=== PATIENT | male | born 1975 | race Caucasian/White ===

== ENCOUNTER 2020-01-31 19:34 | Emergency (ER) | payer BC, SELFPAY ==
--- NOTE | ~2020-01-31 | XR_ITS ---
XR finger 5th RT min 2V 01/31/2020 20:55 Indication: Post fishhook removal Procedure: 2 views right fifth finger Comparison: 01/31/2020 Findings: Interval removal of a fishhook from soft tissues of the fifth digit. No fracture or traumat ic malalignment. No residual foreign body. Impression: 1: No significant bone or joint abnormality after foreign body removal. Reviewed, dictated and finalized at location A. Impression: 1: No significant bone or joint abnormality after foreign body removal.
--- NOTE | ~2020-01-31 | XR_ITS ---
XR finger 5th RT min 2V 01/31/2020 20:24 Indication: Right fifth finger trauma. Finger pain. [place] and fifth finger. Procedure: 4 views right fifth finger Comparison: No prior studies for comparison. Findings: There is a fishhook in the soft tissues adjacent to the fifth distal phalanx. No underlying fracture or traumatic malalignment. No significant soft tissue swelling. Impression: 1: [place] in soft tissues adjacent to right fifth distal phalanx. No underlying osseous abnormality . Reviewed, dictated and finalized at location A. Impression: 1: [place] in soft tissues adjacent to right fifth distal phalanx. No underlyi ng osseous abnormality.
[2020-01-31 19:38] VITALS: BP 145/80; PULSE 92; RESP 18; TEMP 36.7; O2SAT 99
--- NOTE | 2020-01-31 20:12 | ED.WOUNDLAC ---
HPI - Wound/Laceration General Chief Complaint: Wound/Laceration Stated Complaint: karen in finger Time Seen by Provider: 01/31/20 20:08 Source: RN notes reviewed History of Present Illness HPI narrative: Patient presents emergency department from home for karen in right fifth digit. Patient states prior to arrival he was fishing with his daughter when she went to cast and karen became lodged in his lateral right fifth digit. Denies any other trauma or injury. States that he is unsure of his last tetanus shot. Denies any numbness tingling or fevers Related Data Home Medications Medication Instructions Recorded Confirmed blood sugar diagnostic #10 each 09/05/19 09/05/19 fluticasone propionate 50 2 spray NASAL DAILY 09/05/19 09/05/19 mcg/actuation nasal spray,suspension ketoconazole 2 % topical cream 1 applic TOPICAL DAILY 09/05/19 09/05/19 lancets #50 each 09/05/19 09/05/19 metformin 500 mg tablet 500 mg PO DAILY 09/05/19 09/05/19 triamcinolone acetonide 0.1 % 1 applic TOPICAL BID 09/05/19 09/05/19 topical cream Allergies Allergy/AdvReac Type Severity Reaction Status Date / Time No Known Allergies Allergy Unverified 12/23/18 07:26 Review of Systems Review of Systems: Narrative: Gen.: Denies fevers or chills Musculoskeletal: See HPI Neuro: Denies numbness, tingling, weakness Skin: Denies rash Endo: Reports diabetes mellitus Except as documented, all other systems reviewed and negative [facility] Past Medical History Medical History (Updated 01/31/20 @ 21:02 by Levy Flores DO) Diabetes mellitus type 2 in nonobese Family history of malignant neoplasm of colon in first degree relative diagnosed when younger than 60 years of age Tonsillectomy planned Surgical History Surgical History (Updated 09/07/19 @ 12:40 by Claudine Mo CMA) History of appendectomy History of repair of pectoralis muscle tear Family History Family History (Updated 09/05/19 @ 12:57 by Filemon Becker APN) Mother Patient's mother is in good health Father Patient's father is in good health Other Family history of malignant neoplasm of colon in first degree relative diagnosed when younger than 60 years of age Social History Social History Smoking status: Never smoker Alcohol intake: current Exam Narrative: Exam Narrative: APPEARANCE: No acute distress, nontoxic, resting in bed Eyes: EOMI HEENT: Normocephalic, atraumatic, RESPIRATORY: No respiratory distress MUSCULOSKELETAl: The right fifth digit has fishing hook lodged in the lateral aspect of finger no active bleeding, full flexion extension of the right fifth PIP DIP and MCP joint, capillary refill less than 3 seconds, neurovascular intact NEURO: Awake and alert. Following commands, speech normal, no focal deficits SKIN:: Warm, dry. Normal Color no rash or lesions Course Vital Signs Vital signs: Vital Signs Temperature 98.0 F 01/31/20 19:38 Pulse Rate 92 01/31/20 19:38 Respiratory Rate 18 01/31/20 19:38 Blood Pressure 145/80 H 01/31/20 19:38 Pulse Oximetry 99 01/31/20 19:38 Temperature 98.0 F 01/31/20 19:38 Pulse Rate 92 01/31/20 19:38 Respiratory Rate 18 01/31/20 19:38 Blood Pressure 145/80 H 01/31/20 19:38 Pulse Oximetry 99 01/31/20 19:38 Procedures Foreign Body Removal Foreign Body #1: Time Out Performed: yes Site: right (Fifth finger) Description of foreign body: fish hook Foreign Body Removal Narrative: Right fifth digit digital block performed with lidocaine 1%. Following this the fishhook was a fall fish lower with her coming out and the liver was trimmed down and the hook was cut with a pair of pliers. The fishhook was then advanced and brought out to the finger. Patient tolerated the procedure well. Following this a finger was soaked in warm soapy water on foam splint was placed. MDM - Wound/Laceration Im
[2020-01-31] MEDS: TETANUS,DIPHTHERIA,AC PERTUSSIS ADULT (0.5 ML) BOOSTRIX IM (20:21)
[2020-01-31] MEDS: LIDOCAINE HCL 1% LOCAL INJ 20 ML VIAL (20:45)
[2020-01-31] MEDS: CEPHALEXIN 500 MG CAPSULE PO (20:50)
== END 2020-01-31 21:17 | disposition home or self-care (01) ==
PROVIDERS: Emergency Provider Emergency Medicine; PCP Internal Medicine
DX: S61.236A Puncture wound without foreign body of right little finger without damage to nail, initial encounter (principal); Z23 Encounter for immunization; E11.9 Type 2 diabetes mellitus without complications; Z79.84 Long term (current) use of oral hypoglycemic drugs; W45.8XXA Other foreign body or object entering through skin, initial encounter
CPT/HCPCS: 29130; 73140; 90471; 90715; 99283; A9270

== ENCOUNTER 2020-07-11 10:39 | Outpatient (CLI) | payer BC, SELFPAY ==
[2020-07-11 11:15] LABS: Hemoglobin A1C 6.5 % (<5.7)
[2020-07-11 11:20] LABS: Anion Gap 5 mmol/L (8-16); Blood Urea Nitrogen 16 mg/dL (9-20); Calcium 9.1 mg/dL (8.4-10.2); Carbon Dioxide 25 mmol/L (22-30); Chloride 103 mmol/L (98-107); Cholesterol 204 mg/dL (0-200); Estimated Glomerular Filt Rate > 60; Glucose 151 mg/dL (75-110); HDL Direct 73 mg/dL; Potassium 4.6 mmol/L (3.4-5.0); Sodium 133 mmol/L (137-145); Triglycerides 126 mg/dL (<150)
[2020-07-11 11:30] LABS: LDL Cholesterol Direct 46 mg/dL
== END 2020-07-11 10:40 | disposition home or self-care (01) ==
LOC: ANHLAB 10:41
PROVIDERS: PCP Internal Medicine; Visit Provider Internal Medicine
DX: E11.9 Type 2 diabetes mellitus without complications (principal); E78.5 Hyperlipidemia, unspecified
CPT/HCPCS: 36415; 80048; 80061; 83036

== ENCOUNTER 2021-01-16 16:48 | Outpatient (CLI) | payer BC, SELFPAY ==
[2021-01-16 17:46] LABS: Hemoglobin A1C 7.2 % (<5.7)
[2021-01-16 18:11] LABS: Alanine Aminotransferase 71 U/L (4-50); Albumin Level 4.2 g/dL (3.5-5.1); Alkaline Phosphatase 61 U/L (38-126); Anion Gap 4 mmol/L (8-16); Aspartate Amino Transferase 36 U/L (17-59); Bilirubin,Total 0.9 mg/dL (0.2-1.3); Blood Urea Nitrogen 16 mg/dL (9-20); Calcium 9.2 mg/dL (8.4-10.2); Carbon Dioxide 29 mmol/L (22-30); Chloride 103 mmol/L (98-107); Cholesterol 185 mg/dL (0-200); Estimated Glomerular Filt Rate > 60; Glucose 108 mg/dL (75-110); HDL Direct 77 mg/dL; Potassium 4.3 mmol/L (3.4-5.0); Sodium 136 mmol/L (137-145); Triglycerides 184 mg/dL (<150)
[2021-01-16 18:22] LABS: LDL Cholesterol Direct 34 mg/dL
== END 2021-01-16 16:49 | disposition home or self-care (01) ==
PROVIDERS: PCP Internal Medicine; Visit Provider Internal Medicine
DX: E11.9 Type 2 diabetes mellitus without complications (principal); E78.00 Pure hypercholesterolemia, unspecified; E78.5 Hyperlipidemia, unspecified
CPT/HCPCS: 36415; 80053; 80061; 83036

== ENCOUNTER 2021-06-30 15:43 | Outpatient (CLI) | payer OTHER, SELFPAY ==
--- NOTE | ~2021-06-30 | US_ITS ---
US abdomen complete EXAMINATION: US Abdomen Complete INDICATION: Right-sided abdominal pain PROCEDURE: Realtime High Resolution abdomen ultrasound. COMPARISON: No prior studies for comparison FINDINGS: Gallbladder within normal limits. No gallstones, pericholecystic fluid, gallbladder wall t hickening or biliary dilatation. Common bile duct measures 4 mm. Liver echotexture is increased, consistent with fatty infiltration. Pancreas within normal limits. Pancreatic tail is obscured by bowel gas. Spleen is unremarkeable. Renal echotexture is within arthur l limits bilaterally without hydronephrosis, contour deforming mass or renal stone. Right kidney sharyn ures 9.6 cm. Left kidney measures 11.2 cm. Visualized aspects of the IVC are within normal limits. Aorta is not well visualized due to bowel gas . Portal vein is patent. No sonographic Jay's sign indicated by the technologist. IMPRESSION: 1: Hepatic steatosis. Reviewed, dictated and finalized at location A. IMPRESSION: 1: Hepatic steatosis.
== END 2021-06-30 15:44 | disposition home or self-care (01) ==
LOC: ANHIMG 15:50
PROVIDERS: PCP Internal Medicine; Visit Provider Nurse Practitioner
DX: R10.11 Right upper quadrant pain (principal); R14.0 Abdominal distension (gaseous); K76.0 Fatty (change of) liver, not elsewhere classified
CPT/HCPCS: 76700

== ENCOUNTER 2021-07-31 15:44 | Outpatient (CLI) | payer OTHER, SELFPAY ==
[2021-07-31 17:25] LABS: Hemoglobin A1C 6.7 % (<5.7)
[2021-07-31 17:42] LABS: Alanine Aminotransferase 61 U/L (4-50); Albumin Level 4.9 g/dL (3.5-5.1); Alkaline Phosphatase 59 U/L (38-126); Anion Gap 9 mmol/L (8-16); Aspartate Amino Transferase 35 U/L (17-59); Blood Urea Nitrogen 26 mg/dL (9-20); Calcium 9.3 mg/dL (8.4-10.2); Carbon Dioxide 25 mmol/L (22-30); Chloride 104 mmol/L (98-107); Estimated Glomerular Filt Rate > 60; Glucose 132 mg/dL (65-110); Potassium 4.6 mmol/L (3.4-5.0); Sodium 138 mmol/L (137-145)
== END 2021-07-31 15:45 | disposition home or self-care (01) ==
PROVIDERS: PCP Internal Medicine; Visit Provider Nurse Practitioner
DX: E11.9 Type 2 diabetes mellitus without complications (principal); Z12.5 Encounter for screening for malignant neoplasm of prostate
CPT/HCPCS: 36415; 80053; 83036; 84153; G0103

== ENCOUNTER 2022-03-13 09:50 | Outpatient (CLI) | payer OTHER, SELFPAY ==
--- NOTE | 2022-03-20 19:31 | WPDHOMESLEEP ---
Sleep Study - Home Unattended Date of Study: 03/13/22 Ordering Provider: Filemon Becker APRN Interpreting Provider: Mi Biggs MD Home Sleep Study Type: Apnea Link Air Height: 1.68 m Weight: 122.47 kg Body Mass Index: 43.5 Neck Circumference (inches): 19.5 [place]: 8 Reason for Sleep Study Poor sleep for over 15 years, difficulty getting to sleep and staying asleep Sleep History Reagan Holden is a 46 year old man with a long history of difficulty falling asleep and staying asleep. He has used different medications to help without success. He wakes up throughout the night. He is excessively sleepy in the daytime. He has tried Risperdal, Seroquel and other medications. He does not awaken from sleep feeling short of breath. He rarely awakens at night with heartburn, belching or coughing. Occasionally snores and occasionally it is loud enough that others complain about it. He occasionally has trouble sleeping with a cold. He does not wake up gasping for breath at night. He does not sweat excessively at night. He rarely notices his heart pounding irregularly at night. He rarely falls asleep during the day, he rarely falls asleep involuntarily but never falls asleep while driving. He does not have loss of muscle tone with strong emotion. He frequently has daytime difficulties due to excessive sleepiness. He does not feel paralyzed on waking or falling asleep. He occasionally has vivid dreamlike scenes upon awakening or falling asleep. He does not feel afraid to go to sleep. He occasionally has nightmares. He occasionally remembers his dreams. He frequently has racing thoughts. He rarely feels sad or depressed. He occasionally has anxiety. He frequently has muscular tension. He occasionally notices parts of his body jerking and he occasionally kicks at night. He frequently has crawling and aching feelings in his legs, occasionally has leg pain during the night. He rarely has morning jaw pain. He does not grind his teeth during sleep. He frequently is bothered by pain during the day, frequently is awakened by pain at night. He frequently wakes up feeling stiff the morning with sore achy muscles. He occasionally wakes up with pain in the neck and spine. He has problems with fatigue, insomnia, erectile dysfunction and alcohol. When he wakes at night he is able to return to sleep within 15-20 minutes. He may rule over and adjust his pillows. He does not mention nocturia. He wakes in the morning at 5:30 a.m.. On weekends, bedtime may be later, anywhere between 11:00 p.m. and 1:00 a.m., waking later, between 7:00 a.m. and 9:00 a.m.. On weekends he is able to sleep longer but also notices that he does not wake up as often at night. He does not generally take naps in the afternoon or evening. He is drowsy in the morning for 1 hour or longer. He feels better in the morning compared to other times of day. He reports a 20 lb weight gain in the last year. He has seasonal allergies in the spring and late summer. Habits: He never smoked tobacco. Caffeine 6 cups of coffee a day. Alcohol 3 times per week, 8-10 Mo Lite beers when he drinks. Heestimates 25 beers a week. . [facility] Past Medical History Medical History (Updated 03/20/22 @ 19:40 by Mi Biggs MD) Diabetes mellitus type 2 in nonobese Family history of malignant neoplasm of colon in first degree relative diagnosed when younger than 60 years of age Tonsillectomy planned Surgical History Surgical History (Updated 03/20/22 @ 19:43 by Mi Biggs MD) History of appendectomy History of repair of pectoralis muscle tear History of tonsillectomy Family History Family History Mother Patient's mother is in good health Father Patient's father is in good health Other Family history of malignant neoplasm of colon in first degree relative diagnosed when younger than 60 years of age Social Histo
[2022-03-20 20:00] VITALS: BMI 43.5
== END 2022-03-14 12:54 | disposition home or self-care (01) ==
LOC: ANHCSM 09:51
PROVIDERS: PCP Internal Medicine; Visit Provider Nurse Practitioner
DX: G47.10 Hypersomnia, unspecified (principal); R53.83 Other fatigue; G47.33 Obstructive sleep apnea (adult) (pediatric)
CPT/HCPCS: 95806

== ENCOUNTER 2022-08-16 07:29 | Outpatient (CLI) | payer OTHER, SELFPAY ==
[2022-08-16 08:07] LABS: Alanine Aminotransferase 58 U/L (6-50); Albumin Level 4.6 g/dL (3.5-5.1); Alkaline Phosphatase 58 U/L (38-126); Anion Gap 8 mmol/L (8-16); Aspartate Amino Transferase 29 U/L (17-59); Bilirubin,Total 1.1 mg/dL (0.2-1.3); Blood Urea Nitrogen 21 mg/dL (9-20); Calcium 8.7 mg/dL (8.4-10.2); Carbon Dioxide 27 mmol/L (22-30); Chloride 102 mmol/L (98-107); Cholesterol 208 mg/dL (0-200); Estimated Glomerular Filt Rate > 60; Glucose 181 mg/dL (65-110); HDL Direct 63 mg/dL; Potassium 4.6 mmol/L (3.4-5.0); Sodium 137 mmol/L (137-145); Triglycerides 196 mg/dL (<150)
[2022-08-16 08:21] LABS: LDL Cholesterol Direct 38 mg/dL
== END 2022-08-16 07:30 | disposition home or self-care (01) ==
LOC: ANHLAB 07:31
PROVIDERS: PCP Internal Medicine; Visit Provider Internal Medicine
DX: E11.9 Type 2 diabetes mellitus without complications (principal); E78.00 Pure hypercholesterolemia, unspecified; E78.5 Hyperlipidemia, unspecified
CPT/HCPCS: 36415; 80053; 80061; 83036

== ENCOUNTER 2022-12-13 06:39 | Outpatient (CLI) | payer OTHER, SELFPAY ==
[2022-12-13 07:17] LABS: Alanine Aminotransferase 50 U/L (6-50); Albumin Level 4.5 g/dL (3.5-5.1); Alkaline Phosphatase 49 U/L (38-126); Anion Gap 3 mmol/L (8-16); Aspartate Amino Transferase 30 U/L (17-59); Blood Urea Nitrogen 17 mg/dL (9-20); Calcium 8.8 mg/dL (8.4-10.2); Carbon Dioxide 28 mmol/L (22-30); Chloride 103 mmol/L (98-107); Cholesterol 176 mg/dL (0-200); Estimated Glomerular Filt Rate > 60; Glucose 104 mg/dL (65-110); HDL Direct 73 mg/dL; Potassium 4.3 mmol/L (3.4-5.0); Sodium 134 mmol/L (137-145); Triglycerides 174 mg/dL (<150)
[2022-12-13 07:28] LABS: LDL Cholesterol Direct 34 mg/dL
== END 2022-12-13 06:40 | disposition home or self-care (01) ==
PROVIDERS: PCP Internal Medicine; Visit Provider Internal Medicine
DX: E11.9 Type 2 diabetes mellitus without complications (principal); E78.00 Pure hypercholesterolemia, unspecified; E78.5 Hyperlipidemia, unspecified
CPT/HCPCS: 36415; 80053; 80061; 83036

== ENCOUNTER 2023-07-01 12:07 | Outpatient (CLI) | payer OTHER, SELFPAY ==
[2023-07-01 14:15] LABS: Hemoglobin A1C 5.6 % (<5.7)
[2023-07-01 14:24] LABS: Alanine Aminotransferase 43 U/L (6-50); Albumin Level 4.7 g/dL (3.5-5.1); Alkaline Phosphatase 54 U/L (38-126); Anion Gap 8 mmol/L (8-16); Aspartate Amino Transferase 27 U/L (17-59); Bilirubin,Total 1.6 mg/dL (0.2-1.3); Blood Urea Nitrogen 23 mg/dL (9-20); Calcium 9.4 mg/dL (8.4-10.2); Carbon Dioxide 26 mmol/L (22-30); Chloride 101 mmol/L (98-107); Cholesterol 191 mg/dL (0-200); Estimated Glomerular Filt Rate > 60; Glucose 99 mg/dL (65-110); HDL Direct 84 mg/dL; LDL Cholesterol Direct 45 mg/dL; Potassium 4.4 mmol/L (3.4-5.0); Sodium 135 mmol/L (137-145); Triglycerides 151 mg/dL (<150)
[2023-07-04 11:09] LABS: Testosterone Total 352 ng/dL (250-1100)
== END 2023-07-01 12:08 | disposition home or self-care (01) ==
LOC: ANHLAB 12:11
PROVIDERS: PCP Nurse Practitioner; Visit Provider Nurse Practitioner
DX: E11.9 Type 2 diabetes mellitus without complications (principal); E78.00 Pure hypercholesterolemia, unspecified; R53.83 Other fatigue
CPT/HCPCS: 36415; 80053; 80061; 83036; 84403

== ENCOUNTER 2023-12-09 17:40 | Outpatient (CLI) | payer OTHER, SELFPAY ==
[2023-12-09 18:05] LABS: Basophils Absolute Auto 0.1 K/mm3 (0.0-0.1); Basophils Percent Auto 0.8 % (0.2-1.2); Eosinophils Absolute Auto 0.2 K/mm3 (0-0.3); Eosinophils Percent Auto 1.9 % (0-4.4); Hematocrit 45.8 % (42.0-52.0); Hemoglobin 15.1 g/dL (14.0-18.0); Immature Granulocyte Absolute 0.02 K/mm3 (0.00-0.031); Immature Granulocyte Percent A 0.2 % (0-0.5); Lymphocytes Absolute Auto 3.54 K/mm3 (0.9-3.2); Mean Corpuscular Hemoglobin 29.7 pg (26-34); Mean Corpuscular Volume 90.2 fl (80-100); Mean Platelet Volume 11.4 fl (7.4-10.4); Monocytes Absolute Auto 0.8 K/mm3 (0.1-0.6); Monocytes Percent Auto 8.6 % (2.6-8.5); Neutrophils Absolute Auto 4.5 K/mm3 (1.3-6.7); Neutrophils Percent Auto 49.5 % (45.5-73.1); Platelet Count Result 223 k/mm3 (150-375); Red Blood Count 5.08 M/mm3 (4.6-6.20); Red Cell Distribution Width 13.3 % (11.5-14.5); White Blood Count 9.1 K/mm3 (4.5-10.0)
[2023-12-09 18:14] LABS: Alanine Aminotransferase 43 U/L (6-50); Albumin Level 4.3 g/dL (3.5-5.1); Alkaline Phosphatase 59 U/L (38-126); Anion Gap 5 mmol/L (8-16); Aspartate Amino Transferase 30 U/L (17-59); Bilirubin,Total 1.2 mg/dL (0.2-1.3); Blood Urea Nitrogen 23 mg/dL (9-20); Calcium 9.4 mg/dL (8.4-10.2); Carbon Dioxide 24 mmol/L (22-30); Chloride 107 mmol/L (98-107); Cholesterol 201 mg/dL (0-200); Estimated Glomerular Filt Rate > 60; Glucose 111 mg/dL (65-110); HDL Direct 82 mg/dL; Potassium 4.2 mmol/L (3.4-5.0); Sodium 136 mmol/L (137-145); Triglycerides 241 mg/dL (<150)
[2023-12-09 18:20] LABS: Creatinine Urine 120.8 mg/dL
[2023-12-09 18:48] LABS: Iron 88 ug/dL (49-181)
[2023-12-09 19:12] LABS: Percent Iron Saturation 26 % (20-50)
[2023-12-09 20:01] LABS: Vitamin D 25 Hydroxy 47.2 ng/mL
[2023-12-09 20:02] LABS: MALB Creatinine Ratio 5.4 mg/g (0-30); Microalbumin Urine Random 6.5 mg/L (0-16.7)
[2023-12-09 21:50] LABS: Folic Acid 7.8 ng/mL (2.76->20)
[2023-12-09 22:10] LABS: LDL Cholesterol Direct 49 mg/dL
== END 2023-12-09 17:41 | disposition home or self-care (01) ==
LOC: ANHLAB 17:43
PROVIDERS: PCP Nurse Practitioner; Visit Provider Nurse Practitioner Family
DX: E11.9 Type 2 diabetes mellitus without complications (principal); E78.00 Pure hypercholesterolemia, unspecified; G47.33 Obstructive sleep apnea (adult) (pediatric); N52.9 Male erectile dysfunction, unspecified; M25.519 Pain in unspecified shoulder; G89.29 Other chronic pain; E55.9 Vitamin D deficiency, unspecified; R53.83 Other fatigue
CPT/HCPCS: 36415; 80053; 80061; 82043; 82306; 82607; 82746; 83540; 83550; 85025

== ENCOUNTER 2023-12-10 15:15 | Outpatient (CLI) | payer OTHER, SELFPAY ==
[2023-12-10 16:06] LABS: Rheumatoid Factor < 12.0 IU/ML (<12)
[2023-12-10 16:18] LABS: CRP < 0.5 mg/dL (<1.0)
[2023-12-10 16:21] LABS: Hemoglobin A1C 6.2 % (<5.7)
[2023-12-10 16:23] LABS: Erythrocyte Sedimentation Rate 1 mm/hr (0-20)
[2023-12-12 05:16] LABS: Anti Cyclic Citrullinated Pept <16 Units (<20)
== END 2023-12-10 15:16 | disposition home or self-care (01) ==
PROVIDERS: PCP Nurse Practitioner Family; Visit Provider Nurse Practitioner Family
DX: E11.9 Type 2 diabetes mellitus without complications (principal); M25.50 Pain in unspecified joint
CPT/HCPCS: 36415; 83036; 85652; 86038; 86140; 86200; 86430

== ENCOUNTER 2024-03-27 12:16 | Outpatient (CLI) | payer OTHER, SELFPAY ==
[2024-03-27 13:21] LABS: Alanine Aminotransferase 49 U/L (6-50); Albumin Level 4.4 g/dL (3.5-5.1); Alkaline Phosphatase 54 U/L (38-126); Anion Gap 5 mmol/L (4-12); Aspartate Amino Transferase 31 U/L (17-59); Bilirubin,Total 1.4 mg/dL (0.2-1.3); Blood Urea Nitrogen 20 mg/dL (9-20); Calcium 9.3 mg/dL (8.4-10.2); Carbon Dioxide 24 mmol/L (22-30); Chloride 108 mmol/L (98-107); Estimated Glomerular Filt Rate > 60; Glucose 156 mg/dL (65-110); Potassium 4.5 mmol/L (3.4-5.0); Sodium 137 mmol/L (137-145)
[2024-03-27 13:44] LABS: Hemoglobin A1C 6.5 % (<5.7)
== END 2024-03-27 12:17 | disposition home or self-care (01) ==
PROVIDERS: PCP Nurse Practitioner Family; Visit Provider Nurse Practitioner Family
DX: E11.9 Type 2 diabetes mellitus without complications (principal)
CPT/HCPCS: 36415; 80053; 83036

== ENCOUNTER 2024-10-02 08:39 | Outpatient (CLI) | payer OTHER, SELFPAY ==
[2024-10-02 09:23] LABS: Basophils Absolute Auto 0.1 K/mm3 (0.0-0.1); Basophils Percent Auto 0.9 % (0.2-1.2); Eosinophils Absolute Auto 0.2 K/mm3 (0-0.3); Hematocrit 47.3 % (42.0-52.0); Hemoglobin 15.9 g/dL (14.0-18.0); Immature Granulocyte Absolute 0.02 K/mm3 (0.00-0.031); Immature Granulocyte Percent A 0.3 % (0-0.5); Lymphocytes Absolute Auto 3.51 K/mm3 (0.9-3.2); Lymphocytes Percent Auto 47.6 % (18.3-44.2); Mean Corpuscular HGB Conc 33.6 g/dl (32-36); Mean Corpuscular Hemoglobin 30.5 pg (26-34); Mean Corpuscular Volume 90.6 fl (80-100); Mean Platelet Volume 11.5 fl (7.4-10.4); Monocytes Absolute Auto 0.7 K/mm3 (0.1-0.6); Monocytes Percent Auto 9.2 % (2.6-8.5); Platelet Count Result 247 k/mm3 (150-375); Red Blood Count 5.22 M/mm3 (4.6-6.20); Red Cell Distribution Width 12.9 % (11.5-14.5); White Blood Count 7.4 K/mm3 (4.5-10.0)
[2024-10-02 09:36] LABS: Alanine Aminotransferase 56 U/L (6-50); Albumin Level 4.4 g/dL (3.5-5.1); Alkaline Phosphatase 58 U/L (38-126); Anion Gap 5 mmol/L (4-12); Aspartate Amino Transferase 33 U/L (17-59); Blood Urea Nitrogen 22 mg/dL (9-20); Carbon Dioxide 27 mmol/L (22-30); Chloride 107 mmol/L (98-107); Cholesterol 183 mg/dL (0-200); Estimated Glomerular Filt Rate > 60; Glucose 127 mg/dL (65-110); HDL Direct 64 mg/dL; Potassium 4.2 mmol/L (3.4-5.0); Sodium 139 mmol/L (137-145); Triglycerides 244 mg/dL (<150)
[2024-10-02 09:54] LABS: LDL Cholesterol Direct < 30 mg/dL
[2024-10-02 10:34] LABS: MALB Creatinine Ratio 5.8 mg/g (0-30); Microalbumin Urine Random 10.1 mg/L (0-16.7)
== END 2024-10-02 08:40 | disposition home or self-care (01) ==
PROVIDERS: PCP Nurse Practitioner Family; Visit Provider Nurse Practitioner Family
DX: E78.00 Pure hypercholesterolemia, unspecified (principal); E11.9 Type 2 diabetes mellitus without complications; G47.33 Obstructive sleep apnea (adult) (pediatric); G47.10 Hypersomnia, unspecified; R53.83 Other fatigue; Z68.41 Body mass index [BMI] 40.0-44.9, adult
CPT/HCPCS: 36415; 80053; 80061; 82043; 83036; 85025

== ENCOUNTER 2025-01-21 02:06 | Day surgery (SDC) | payer OTHER, SELFPAY ==
[2025-01-11 15:05] VITALS: BMI 42.0
--- OUTSIDE RECORDS SUMMARY | 2025-01-21 02:09 | XMS_ITS | Continuity of Care Document ---
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 Name Role Phone Jose Smith Unavailable Unavailable Procedures Procedure Date PT Re-evaluation Therapeutic Exercise Neuromuscular Re-Ed Therapeutic Activities Manual Therapy Therapeutic Exercise Therapeutic Activities Neuromuscular Re-Ed Manual Therapy Therapeutic Exercise Therapeutic Activities Neuromuscular Re-Ed Manual Therapy Therapeutic Exercise Therapeutic Activities Neuromuscular Re-Ed Manual Therapy Electrical Stimulation Therapeutic Exercise Therapeutic Activities Neuromuscular Re-Ed Manual Therapy Electrical Stimulation Therapeutic Exercise Therapeutic Activities Neuromuscular Re-Ed Manual Therapy Therapeutic Exercise Therapeutic Activities Neuromuscular Re-Ed Manual Therapy SEO SPECIALIST Acute Therapeutic Exercise Therapeutic Activities Neuromuscular Re-Ed Manual Therapy Hot or Cold Pack Therapeutic Exercise Therapeutic Activities Neuromuscular Re-Ed Manual Therapy Electrical Stimulation Therapeutic Exercise Neuromuscular Re-Ed Therapeutic Activities Manual Therapy Electrical Stimulation Therapeutic Exercise Therapeutic Activities Manual Therapy Neuromuscular Re-Ed Electrical Stimulation Hot or Cold Pack PT Evaluation Moderate Complexity Therapeutic Exercise Therapeutic Activities Neuromuscular Re-Ed Electrical Stimulation Advance Directives Directive Yes / No Effective Date File Name No Information Encounters Encounter Description Practice Location Reason(s) For Visit Diagnoses Date Provider Providers Copied on Encounter [address], [id number], tel:[phone] [place] No Information 1 9 Muehl Jose. [address] [place] [address], [address], [facility], . tel:[phone] Referring Provider: Rayo Edwards, [address] [address], [place], [address]. tel:[phone], [id number], tel:[phone] [place] No Information 0201 9 Muehl Jose. [address] [place] [address], [address], [facility], . tel:[phone] Referring Provider: Rayo Edwards, [address] [address], [place], [address]. tel:[phone] [address], [place], [place], [id number], tel:[phone] [place] No Information 9 Threlkeld Alpa. . Referring Provider: Rayo Edwards, [address] [address], [place], [address]. tel:[phone] [facility] [address], [id number], tel:[phone] [place] No Information 9 Muehl Jose. [address] [place] [address], [address], [place], [place], [facility], [place]. tel:[phone] Referring Provider: Rayo Edwards [address] [place] [address] [address], [place], [address]. tel:[phone], [id number], tel:[phone] [place] No Information 9 Muehl Jose. [address] [place] [address], [address], [place], [place], [facility], [place]. tel:[phone] Referring Provider: Rayo Edwards [address] [place] [address] [address], [place], [address]. tel:[phone], [id number], tel:[phone] [place] No Information 9 Muehl Jose. [address] [place] [address], [address], [place], [facility], [place]. tel:[phone] Referring Provider: Rayo Edwards [address] [place] [address] [address], [place], [address]. tel:[phone], [id number], tel:[phone] [place] No Information 9 Muehl Jose. [address] [place] [address], [address], [place], [address], [place]. tel:[phone] Referring Provider: Raoy Edwards [address] [place] [address] [address], [place], [address]. tel:[phone], [id number], tel:[phone] [place] No Information 9 Muehl Jose. [address] [place] [address], [address], [place], [facility], . tel:[phone] Referring Provider: Rayo Edwards [facility] [address], [place], [address]. tel:[phone], [id number], tel:[phone] [place] No Information 9 Muehl Jose. [address] [place] [address], [address], [place], [facility], . tel:[phone] Referring Provider: Rayo Edwards [address] [place] [address] [facility], [place], [place], [facility]. tel:[phone], [id number], tel:[phone] [place] No Information 9 Ngal Jose. [address] [place] [address], [address] [place] [address], [facility], . tel:[phone] Referring Provider: Rayo Edwards [address] [place] [address] [address] [facility], [place], [address]. tel:[phone], [id number], tel:[phone] [place] No Information 9 Woodyehl Jose. [address] [place] [address], [address], [facility], . tel:[phone] Referring Provider: Rayo Edwards [facility] [address] [place] [address], [address]. tel:[phone], [id number], tel:[phone] [place] Pain in right kneeStiffness of right knee, not elsewhere classifiedEffu cesia, right kneeMuscle weakness (generalized)U nspecified abnormalities of gait and mobility 9 Muehl Jose. [address] [facility], [address], [place], [address], [place]. tel:[phone] Referring Provider: Rayo Edwards, [address] [facility] [address], [place], [address]. tel:[phone] Family History Family Member Type Diagnosis Age At Onset No Information Payers Payer name Insurance type Covered green party ID Authoriza katiuskatroy(s) [employer] EPO WC SP WC [id number] Social History Type Description Quantity Date Captured Comments Alcohol Use Details Unknown Caffeine Use Details Unknown Tobacco Use Status No Information Smoking Status No Information Non-Smoking Tobacco Use Details : No Details Available : No Details Available Sex Male Chief Complaint And Reason For Visit No Information Reason For Referral Reason For Referral No Information History Of Present Illness Encounter Date Complaint History Of Prese nt Illness No Information Functional Status Date Functional Assessmen t Pain Score 3/10 Instructions Date Instruction Additional Infor mation No Information Assessments Type Assessment Date No Information Patient Care Teams Name Effective Dates (start - stop) Status Members No Information
--- OUTSIDE RECORDS SUMMARY | 2025-01-21 02:09 | XMS_ITS | Clinical Summary ---
Author Organization [facility] Address [facility] [place] [address] Care Team Providers Care Sexual Assault Response Coordinator Name Role Phone Emelia Barker NP Primary Care Provider [phone] Allergies Active Allergy Reactions Criticality Noted Date Comments Dss Throat swelling 10/21/2000 Medications acetaminophen (TYLENOL) 325 MG tablet Take 2 tablets (650 mg total) by mouth every 6 (six) hours as needed for Pain. Active Multiple Vitamin (MULTIVITAMIN ADULT OR) Take 1 tablet by mouth daily. Active diphenhydrAMINE (BENADRYL) 50 MG tablet Take 1 tablet (50 mg total) by mouth nightly as needed for Itching. Active metFORMIN (GLUCOPHAGE) 500 MG tablet Take 1 tablet (500 mg total) by mouth 2 (two) times daily with meals. Active fluticasone propionate (FLONASE) 50 MCG/ACT nasal spray Active Semaglutide (OZEMPIC, 0.25 OR 0.5 MG/DOSE, SC) Active Active Problems Problem Noted Date Diagnosed Date S/P arthroscopy of left shoulder 04/09/2024 Nontraumatic complete tear of left rotator cuff 02/11/2024 Impingement syndrome of left shoulder 02/11/2024 Osteoarthritis of left acromioclavicular joint 0 02/11/2024 Injury of tendon of long hea d of biceps, left, initial encounter 02/11/2024 Rotator cuff arthropathy of left shoulder 2023 Encounters Date Type Department Care Team Description 01/19/2025 8:00 AM CDT Office Visit [facility] Orthopedic & Sports Medicine - [place] [address] [place] [address] Nicolasa Yates MD Follow Up (Left shoulder scope 04/10/24) 01/19/2025 Scan [facility] INFO SRVCS Scanned, Doc Med Group 01/19/2025 Travel 01/07/2025 MyChart Message Enc [facility] Orthopedic & Sports Medicine - [place] [address] [place] [address] Mariaa, [facility] Provider apt reschedule 01/06/2025 Telephone [facility] Medicine - [place] [address] [place] [address] Nicolasa Yates MD Reschedule; Work Comp Injury Management; Returned Call 12/30/2024 MyChart Message Enc [facility]opedic & Sports Medicine - [place] [address] [place] [address] Mariaa, [facility] Provider appointment 12/29/2024 Telephone [facility]opedic & Sports Medicine - [place] [address] [place] [address] Nicolasa Yates MD Information 12/25/2024 Scan HEALTH INFO SRVCS Scanned, Doc Med Group 12/21/2024 Telephone [facility]opedic & Sports Medicine - [place] [address] [place] [address] Nicolasa Yates MD Information; Orders 12/15/2024 MyChart Message Enc [facility]opedic [facility] Medicine - [place] [address] [place] [address] Mariaa, [facility] Provider MRI results 12/15/2024 MyChart Message Enc [facility] Medicine - [place] [address] [place] [address] Mariaa, [facility] Provider MRI results 12/09/2024 1:10 PM PROFESSOR OF PHILOSOPHY - 12/09/2024 11:59 PM PROFESSOR OF PHILOSOPHY Hospital Encounter [facility] [address] [place] [address] Nicolasa Yates MD Discharge Disposition: Home or Self Care (Routine Discharge) 12/09/2024 Telephone [facility] Orthopedic & Sports [facility] [address] [place] [address] Nicolasa Yates MD Appointment Request (MRI results) 12/09/2024 Travel 12/01/2024 11:20 AM PROFESSOR OF PHILOSOPHY Office Visit [facility] Orthopedic & Sports [facility] [address] [place] [address] Nicolasa Yates MD Follow Up (Left shoulder 04/10/24) 12/01/2024 Scan [facility] SRVCS Scanned, Doc Med Group 12/01/2024 Travel 11/30/2024 9:00 AM PROFESSOR OF PHILOSOPHY Office Visit [facility] [address] [place] [address] Nicolasa Yates MD Walters, Cierra J, PT Re-evaluation 11/30/2024 Travel 11/27/2024 9:00 AM PROFESSOR OF PHILOSOPHY Office Visit [facility] [address] [place] [address] Nicolasa Yates MD Walters, Cierra J, PT Post Surgical 11/27/2024 Travel 11/25/2024 9:30 AM PROFESSOR OF PHILOSOPHY Office Visit [facility] [address] [place] [address] Nicolasa Yates MD Lutz, Robert J, BREADMAN Post Surgical 11/25/2024 Travel 11/23/2024 8:45 AM PROFESSOR OF PHILOSOPHY Office Visit [facility] [address] [place] [address] Nicolasa Yates MD Walters, Cierra J, PT Post Surgical 11/23/2024 Travel 11/20/2024 9:30 AM PROFESSOR OF PHILOSOPHY Office Visit [facility] [address] [place] [address] Nicolasa Yates MD Lutz, Robert J, BREADMAN Post Surgical 11/20/2024 Travel 11/18/2024 10:15 AM PROFESSOR OF PHILOSOPHY Office Visit [facility] [address] [place] [address] Nicolasa Yates MD Lueken, Anne H, PT Post Surgical 11/18/2024 Travel 11/16/2024 9:15 AM PROFESSOR OF PHILOSOPHY Office Visit [facility] Physical Therapy [address] [facility] [place] [address] Nicolasa Yates MD Collins, Sabrina R, BREADMAN Post Surgical 11/16/2024 Travel 11/13/2024 Telephone [facility] [address] [place] [address] Levy Morales, BREADMAN Called To Cancel Office Appt. 11/11/2024 8:45 AM PROFESSOR OF PHILOSOPHY Office Visit [facility] Physical Therapy [address] [place] [address] Nicolasa Yates MD Lutz, Robert J, BREADMAN Post Surgical 11/11/2024 Travel 11/09/2024 8:45 AM PROFESSOR OF PHILOSOPHY Office Visit [facility] Therapy [address] [place] [address] Nicolasa Yates MD Walters, Cierra J, PT Post Surgical 11/09/2024 Travel 11/06/2024 8:45 AM PROFESSOR OF PHILOSOPHY Office Visit [facility] Physical Therapy [address] [place] [address] Nicolasa Yates MD Lutz, Robert J, BREADMAN Post Surgical 11/06/2024 Travel 11/02/2024 8:45 AM PROFESSOR OF PHILOSOPHY Office Visit [facility] [address] [place] [address] Nicolasa Yates MD Walters, Cierra J, PT Post Surgical 11/02/2024 Travel 10/30/2024 Telephone [facility] [address] [place] [address] Marychuy Bradley, PT Called To Cancel Office Appt. 10/29/2024 11:15 AM PROFESSOR OF PHILOSOPHY Office Visit [facility] Physical Therapy [address] [place] [address] Nicolasa Yates MD Walters, Cierra J, PT Post Surgical 10/29/2024 Travel from Last 3 Months Family History Medical History Relation Comments Cancer Mother Relation Status Comments Father Alive Mother Social History Tobacco Use Types Packs/Day Years Used Date Smoking Tobacco: Never Passive Smoke Exposure: Never Smokeless Tobacco: Never Tobacco Cessation:Counseling Given: No Alcohol Use Standard Drinks/Week Comments Yes 20 (1 standard drink = 0.6 oz pu re alcohol) PHQ-2 Answer Date Recorded Patient Health Questionnaire-2 Score 2 12/01/2024 Sex and Gender Information Value Date Recorded Sex Assigned at Male 12/09/2024 1:07 PM PROFESSOR OF PHILOSOPHY Legal Sex Male 11:12 PM CDT Gender Identity Not on file Sexual Orientation Not on file Last Filed Vital Signs Vital Sign Reading Time Taken Comments Blood Pressure 150/88 01/19/2025 8:29 AM CDT Pulse 71 01/19/2025 8:29 AM CDT Temperature 36.7 C (98.1 F) 01/19/2025 8:07 AM CDT Respiratory Rate 18 04/10/2024 12:50 PM CDT Oxygen Saturation 98% 07/16/2024 9:34 AM CDT Inhaled Oxygen Concentration - - Weight 116 kg (255 lb 12.8 oz) 01/19/2025 8:07 A M CDT Height 170.2 cm (5' 7 ) 01/19/2025 8:07 AM CDT Body Mass Index 40.06 01/19/2025 8:07 AM CDT Plan of Treatment Health Maintenance Due Date Last Done Comments Colorectal Cancer Screening Colonoscopy (10 Years) 1974 Annual Physical 1977 Hepatitis C 1992 Hepatitis B Vaccines (1 of 3 - 19+ 3-dose series) 1993 COVID-19 Vaccine (2 - 2023-2 5 season) 2024 12/23/2020 Zoster Vaccines (1 of 2) 2024 DTaP, Tdap and Td Vaccines ( 2 - Td or Tdap) 01/30/2030 01/31/2020 PHQ-2 (Physician [place]) Completed 12/01/2024 Meningococcal B Vaccine Aged Out No l onger eligible based on patient's age to complete this topic Meningococcal Vaccine Aged Out No shadi conchita eligible based on patient's age to complete this topic Pneumococcal Vaccine: Pediat rics (0 to 5 Years) and At-Risk Patients (6 to 64 Years) Aged Out No longer eligi ble based on patient's age to complete this topic RSV Immunizations Under 20 Months Aged Out No longer eligible based on patient's age to complete this topic Medical Devices Implanted Type Area Towerman Device Identifier Shelf Expiration Date Model / Serial / Lot Implant Ar[employer]rex [place] Bio-Corkscrew 4.5mm - [id number] Implanted:Qty : 1 on 04/10/2024 by Nicolasa Yates MD at [facility] [place] Left: Shoulder [employer] [id number] 04/19/2027 [id number] F-45 / / [id number] Implant [place] Arthrex Bio Swivelock 4.75mm - [id number] Implanted:Qty : 2 on 04/10/2024 by Nicolasa Yates MD at [facility] [place] Left: Shoulder [employer] [id number] 11/20/2027 [id number] C / / [id number] [place] Suture [employer]rex Bio Swivelock 5.5mm - [id number] Implanted:Qty : 1 on 04/10/2024 by Nicolasa Yates MD at [facility] [place] Left: Shoulder [employer] [id number] 12/19/2027 [id number] C / / [id number] Procedures Procedure Name Priority Date/Time Associated Diagnosis Comments MRI SHOULDER LT WO CON Routine 12/09/2024 1:45 PM PROFESSOR OF PHILOSOPHY S/P arthroscopy of left shoulder OXR LT SHOULDER 3V Routine 12/01/2024 11 :47 AM PROFESSOR OF PHILOSOPHY S/P arthroscopy of left shoulder from Last 3 Months Results * MRI SHOULDER LT WO CON (12/09/2024 1:45 PM PROFESSOR OF PHILOSOPHY) Anatomical Region Laterality Modality Shoulder Magnetic Resonan ce 12/15/2024 3:19 PM PROFESSOR OF PHILOSOPHY Impressions 12/15/2024 3:36 PM PROFESSOR OF PHILOSOPHY IMPRESSION: 1) Rotator cuff repair appears intact. No evidence of recurrent rotator cuff tear. 2. Intra-articular proximal long head of biceps tendon is not visualized in its expected location suggesting that it has been torn and retracted. Ordered By: NICOLASA YATES Interpreted By: Janes Mcmahon MD, 12/15/2024 3:19 PM Narrative 12/15/2024 3:36 PM PROFESSOR OF PHILOSOPHY [address] [address] Examination: MRI SHOULDER LT WO CON Exam time: 12/09/2024 1:22 PM Clinical history: History of left rotator cuff repair, long head of biceps tendon tenotomy and resection of the distal clavicle. Recurrent shoulder pain Comparison: 12/26/2023 Technique: Coronal fat-suppressed T2 and fat-suppressed proton density images left shoulder obtained along with sagittal T1 and fat-suppressed T2-weighted images. Axial fat-suppressed proton density images. No intravenous contrast. Findings: The images demonstrate multifocal metal susceptibility artifacts in the humeral head consistent with anchor sutures related to previous surgical repair. Marrow signal in the proximal humerus is otherwise unremarkable. No significant glenohumeral joint effusion. There is no definite evidence of acute labral tear nor para labral cyst. The intra-articular proximal long head of biceps tendon is not visualized in its expected location suggesting that it may be torn and retracted. There is been surgical repair of large rotator cuff tear. The rotator cuff appears intact post surgery. There is no evidence of recurrent rotator cuff tear. Small amount of fluid in subacromial/subdeltoid bursa. There is been previous resection of the distal clavicle. Procedure Note Janes Mcmahon MD - 12/15/2024 [address] [place] [address] Examination: MRI SHOULDER LT WO CON Exam time: 12/09/2024 1:22 PM Clinical history: History of left rotator cuff repair, long head of bicepstendon tenotomy and resection of the distal clavicle. Recurrent shoulderpain Comparison: 12/26/2023 Technique: Coronal fat-suppressed T2 and fat-suppressed proton densityimages left shoulder obtained along with sagittal T1 and [id number] images. Axial fat-suppressed proton density images. Nointravenous contrast. Findings: The images demonstrate multifocal metal susceptibility artifactsin the humeral head consistent with anchor sutures related to previoussurgical repair. Marrow signal in the proximal humerus is otherwiseunremarkable. No significant glenohumeral joint effusion. There is no definite evidence of acute labral tear nor para labral cyst.The intra-articular proximal long head of biceps tendon is not visualizedin its expected location suggesting that it may be torn and retracted. There is been surgical repair of large rotator cuff tear. The rotator cuffappears intact post surgery. There is no evidence of recurrent rotatorcuff tear. Small amount of fluid in subacromial/subdeltoid bursa. There isbeen previous resection of the distal clavicle. IMPRESSION: 1) Rotator cuff repair appears intact. No evidence of recurrent rotatorcuff tear. 2. Intra-articular proximal long head of biceps tendon is not visualizedin its expected location suggesting that it has been torn and retracted. Ordered By: NICOLASA YATES Interpreted By: Janes Mcmahon MD, 12/15/2024 3:19 PM us Nicolasa Yates MD MRI Final Result * OXR LT SHOULDER 3V (12/01/2024 11:47 AM PROFESSOR OF PHILOSOPHY) Anatomical Region Laterality Modality Radiographic Taylor ging Narrative 12/01/2024 11:52 AM PROFESSOR OF PHILOSOPHY PROCEDURE: OXR LT SHOULDER 3V VIEWS: 3 DATE: 12/01/24 COMPARISONS: None CLINICAL INDICATION: FINDINGS: Type 1+ acromion, evidence of prior distal clavicle excision. No acute findings. IMPRESSION: Consistent with patient's prior arthroscopic subacromial decompression and distal clavicle excision. Nicolasa Yates MD GENERAL IMAGING Final Result from Last 3 Months Insurance [employer] Care Teams Sexual Assault Response Coordinator Relationship Specialty Start Date End Date Emelia Barker NP [address] [place] [phone] PCP - General NURSE PRACTITIONER 12/19/23
--- OUTSIDE RECORDS SUMMARY | 2025-01-21 02:09 | XMS_ITS | Encounter Summary ---
Author Organization [facility] Address [address] [place] [address] Care Team Providers Care Supervisor Pile Driving Name Role Phone Emelia Barker NP Primary Care Provider [phone] Encounter Details Date Type Department Care Team (Late st Contact Info) Description 12/15/2024 OnlineMarket Message [facility] Medicine - [place] [address] [facility] Provider MRI results Social History Tobacco Use Types Packs/Day Years Used Date Smoking Tobacco: Never Passive Smoke Exposure: Never Smokeless Tobacco: Never Alcohol Use Standard Drinks/Week Comments Yes 20 (1 standard drink = 0.6 oz pu re alcohol) PHQ-2 Answer Date Recorded Patient Health Questionnaire-2 Score 2 12/01/2024 Sex and Gender Information Value Date Recorded Sex Assigned at Male 12/09/2024 1:07 PM TELEGRAPH PLANT MAINTAINER Legal Sex Male 11:12 PM CDT Gender Identity Not on file Sexual Orientation Not on file documented as of this encounter Plan of Treatment Not on file documented as of this encounter Visit Diagnoses Not on filedocumented in this encounter Care Teams Supervisor Pile Driving Relationship Specialty Start Date End Date Emelia Barker NP [address] [place] [address] PCP - General NURSE PRACTITIONER 12/19/23 documented as of this encounter
--- OUTSIDE RECORDS SUMMARY | 2025-01-21 02:09 | XMS_ITS | Encounter Summary ---
Author Organization [facility] Address [address] [place] [address] Care Team Providers Care Resident Assistant Name Role Phone Emelia Barker SIDE SAWYER Primary Care Provider [phone] Encounter Details Date Type Department Care Team (Late st Contact Info) Description 12/30/2024 Protonet Message [facility] Orthopedic & Sports Medicine - [place] [address] [facility], [facility] Provider appointment Social History Tobacco Use Types Packs/Day Years Used Date Smoking Tobacco: Never Passive Smoke Exposure: Never Smokeless Tobacco: Never Alcohol Use Standard Drinks/Week Comments Yes 20 (1 standard drink = 0.6 oz pu re alcohol) PHQ-2 Answer Date Recorded Patient Health Questionnaire-2 Score 2 12/01/2024 Sex and Gender Information Value Date Recorded Sex Assigned at Male 12/09/2024 1:07 PM STOGIE PACKER Legal Sex Male 11:12 PM CDT Gender Identity Not on file Sexual Orientation Not on file documented as of this encounter Plan of Treatment Not on file documented as of this encounter Visit Diagnoses Not on filedocumented in this encounter Care Teams Resident Assistant Relationship Specialty Start Date End Date Emelia Barker NP [address] [place] [address] PCP - General NURSE PRACTITIONER 12/19/23 documented as of this encounter
--- OUTSIDE RECORDS SUMMARY | 2025-01-21 02:09 | XMS_ITS | Encounter Summary ---
Author Organization [facility] Address [address] [place] [address] Care Team Providers Care Cytotechnologist Name Role Phone Emelia Barker NP Primary Care Provider [phone] Encounter Details Date Type Department Care Team (Late st Contact Info) Description 12/15/2024 Marvel Message [facility] Orthopedic & Sports Medicine - [place] [address] [facility] Provider MRI results Social History Tobacco Use Types Packs/Day Years Used Date Smoking Tobacco: Never Passive Smoke Exposure: Never Smokeless Tobacco: Never Alcohol Use Standard Drinks/Week Comments Yes 20 (1 standard drink = 0.6 oz pu re alcohol) PHQ-2 Answer Date Recorded Patient Health Questionnaire-2 Score 2 12/01/2024 Sex and Gender Information Value Date Recorded Sex Assigned at Male 12/09/2024 1:07 PM CHIEF ANALYTICS OFFICER Legal Sex Male 11:12 PM CDT Gender Identity Not on file Sexual Orientation Not on file documented as of this encounter Plan of Treatment Not on file documented as of this encounter Visit Diagnoses Not on filedocumented in this encounter Care Teams Cytotechnologist Relationship Specialty Start Date End Date Emelia Barker NP [address] [place] [address] PCP - General NURSE PRACTITIONER 12/19/23 documented as of this encounter
--- OUTSIDE RECORDS SUMMARY | 2025-01-21 02:09 | XMS_ITS | Encounter Summary ---
Author Organization [facility] Address [address] [place] [address] Care Team Providers Care Waterproof Material Folder Name Role Phone Emelia Barker NP Primary Care Provider [phone] Encounter Details Date Type Department Care Team (Late st Contact Info) Description 01/07/2025 Embo Medical Message Pending sale to [facility] Orthopedic & Sports Medicine - [place] [address] [facility] Provider apt reschedule Social History Tobacco Use Types Packs/Day Years Used Date Smoking Tobacco: Never Passive Smoke Exposure: Never Smokeless Tobacco: Never Alcohol Use Standard Drinks/Week Comments Yes 20 (1 standard drink = 0.6 oz pu re alcohol) PHQ-2 Answer Date Recorded Patient Health Questionnaire-2 Score 2 12/01/2024 Sex and Gender Information Value Date Recorded Sex Assigned at Male 12/09/2024 1:07 PM 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
--- OUTSIDE RECORDS SUMMARY | 2025-01-21 02:09 | XMS_ITS | Encounter Summary ---
Author Organization [facility] Address [address] [place] [address] Care Team Providers Care Bore Miner Operator Name Role Phone Emelia Barker ASSOCIATE PROFESSOR Primary Care Provider [phone] Encounter Details Date Type Department Care Team (Latest Contact Info) Description 01/19/2025 Scan [facility] HEALTH INFO SRVCS Scanned, Doc Med Group Social History Tobacco Use Types Packs/Day Years Used Date Smoking Tobacco: Never Passive Smoke Exposure: Never Smokeless Tobacco: Never Alcohol Use Standard Drinks/Week Comments Yes 20 (1 standard drink = 0.6 oz pu re alcohol) PHQ-2 Answer Date Recorded Patient Health Questionnaire-2 Score 2 12/01/2024 Sex and Gender Information Value Date Recorded Sex Assigned at Male 12/09/2024 1:07 PM SCREEDMAN Legal Sex Male 11:12 PM CDT Gender Identity Not on file Sexual Orientation Not on file documented as of this encounter Plan of Treatment Not on file documented as of this encounter Visit Diagnoses Not on filedocumented in this encounter Care Teams Bore Miner Operator Relationship Specialty Start Date End Date Emelia Barker NP [address] [place] [address] PCP - General NURSE PRACTITIONER 12/19/23 documented as of this encounter
--- OUTSIDE RECORDS SUMMARY | 2025-01-21 02:09 | XMS_ITS | Continuity of Care Document ---
Author Organization [facility] Address [address] [place] [address] Phone Care Team Providers Care Bell Cleaner Name Role Phone Rayo Edwards MD Unavailable Unavailable Allergies, Adverse Reactions, Alerts Substance Reaction Status Criticality No Known Drug Allergies Active No I nformation Procedures Procedure Date Global/Postop followup visit Supplemental Report Global/Postop followup visit Supplemental Report Global/Postop followup visit Supplemental Report Global/Postop followup visit Supplemental Report Office/outpatient visit,est, mod 2018 Supplemental Report MRI lower extrm joint, w/o contrast X-ray exam both knees, standing 019 X-ray exam knee, 1 or 2 views 9 [employer] Hinged Knee Sleeve Breg Office consultation, moderate 9 Advance Directives Directive Yes / No Effective Date File Name No Information Encounters Encounter Description Practice Location Reason(s) For Visit Diagnoses Date Provider Providers Copied on Encounter [facility], [address] [facility], [place], [place], [id number], [place] tel:[phone] [facility] right knee (chief complaint) Encounter for other orthopedic aftercare Jerry Cade. [address] [facility], [address], [place], [place], [id number] , [place]. tel:[phone] [facility], [address] [address], [place], [place], [address], [place] tel:[phone] [email or web address] right knee (chief complaint) Encounter for other orthopedic aftercare Jerry Cade. [address] [facility], [address], [place], [place], [address] , [place]. tel:[phone] [facility], [address] [facility] [address], [place], [place], [address], [place] tel:[phone] [email or web address] right knee (chief complaint) Encounter for other orthopedic aftercare Jerry Cade. [address] [facility], [address], [place], [place], [address] , [place]. tel:[phone] [facility], [address] [address], [place], [place], [id number], [place] tel:[phone] [facility] right knee (chief complaint) Encounter for other orthopedic aftercare Jerry Cade. [address] [facility], [address], [place], [place], [address] , [place]. tel:[phone] Referring Provider: Rayo Chavira, [address] [facility] [address], [place], [address] . tel:[phone] [facility], [address], [id number], [place] tel:[phone] [facility] Oth tear of medial meniscus, current injury, r knee, sequela Jerry Cade. [address] [facility], [address], [place], [place], [address] , [place]. tel:[phone] Office/outpat ient visit,est, mod [facility], [address] [facility] [address], [place], [place], [address], [place] tel:[phone] [facility] right knee (chief complaint) Oth tear of medial meniscus, current injury, r knee, sequela Jerry Cade. [address] [facility], [address], [place], [place], [id number] , . tel:[phone] Referring Provider: Rayo Chavira, [address] [facility] [address], [place], [place], [address] [place] [address] . tel:[phone] [facility], [address] [place] [address], [place], [address], tel:[phone] [facility] Pain in right knee [facility]. [address] [place] [address], [address], [place], [place], [address] [place] [address] , . tel:[phone] Referring Provider: Rayo Chavira, [address] [place] [address] [address], [place], [place], [address] [place] [address] . tel:[phone] Office consultation, [facility], [address] [place] [address] [address], [place], [place], [address] [place] [address], tel:[phone] [facility] right knee (chief complaint) Pain in right knee Jerry Cade. [address] [place] [address], [address], [place], [place], [address] [place] [address] , [place]. tel:[phone] Referring Provider: Rayo Chavira, [address] [place] [address] [address], [place], [address] . tel:[phone] Family History Family Member Type Diagnosis Age At Onset Mother Problem (finding) Cancer, unknown Father Problem (finding) Diabetes Payers Payer name Insurance type Covered libertarian ID Brandon newton(s) [facility] [id number] Social History Type Description Quantity Date Captured Comments Alcohol Use Details Caffeine Use Details Unknown Tobacco Use Status Current non-smoker 19 Smoking Status Never smoker Non-Smoking Tobacco Use Details : No Details Available : No Details Available Sex Male Vital Signs Date / Time: Height Weight BMI Pulse Rate Blood Pressure Temperature Respiratory Rate Body Surface Area Head Circumference Head Circ. Percentile Wt./Abhijeet. Percentile BMI percentile Pulse Ox Inhaled Ox 1:01 PM 66.00 in 106.594 kg (235.00 lbs) 37.9 3 kg/m eter (2) Chief Complaint And Reason For Visit From encounter dated '06/16/2019 12:50'. right knee (chief complaint). Description: Reagan returns to the office for right knee follow up. Reason For Referral Reason For Referral No Information Plan Of Treatment Date Type Action Status Referral Ordered: X-ray exam both knees, standing ordered Referral Ordered: MRI lower extrm joint, w/o contrast RT knee Appointment date/timeframe: 04/01/2019 ordered Referral Ordered: X-ray exam knee, 1 or 2 views RT ordered Patient Education Body Mass Index: After Your Visit completed Patient Education Body Mass Index: After Your Visit completed Patient Education Body Mass Index: After Your Visit completed Patient Education Body Mass Index: After Your Visit completed Patient Education Body Mass Index: After Your Visit completed Patient Education Body Mass Index: After Your Visit completed History Of Present Illness Encounter Date Complaint History Of Prese nt Illness right knee Reagan returns to the office for right knee follow up. right knee Reagan returns to the office for right knee follow up. right knee Reagan returns to the office for right knee follow up. right knee Reagan returns to the office for right knee follow up. right knee Reagan returns to the office for right knee follow up. right knee Reagan presents t o the office for right knee complaints. Functional Status Date Functional Assessmen t No Information Instructions Date Instruction Additional Infor mation No Information Assessments Type Assessment Date assessment Encounter for other orthopedic a ftercare Patient Care Teams Name Effective Dates (start - stop) Status Members No Information
[2025-01-21 06:22] VITALS: BP 147/100; PULSE 79; RESP 16; TEMP 35.9; O2SAT 97; BMI 40.0
[2025-01-21] MEDS: LACTATED RINGERS 1,000 ML 150 ML IV CONT (06:33)
[2025-01-21 06:38] LABS: Glucose Point of Care 126 mg/dl (65-105)
--- NOTE | 2025-01-21 07:16 | P.PNAN_ITS ---
Anes - Initial Pre Proc Eval Procedure: Operation Date: 01/21/25 07:30 Proposed Procedures p Screening Colonoscopy - Kevin Cho MD Date/Time: 01/21/25 07:16 Surgeon: Kevin Cho MD Pre Op Diagnosis: screening colon Patient Data Age: 49 Gender: M Height: 1.68 m Weight: 112.6 kg Last Vital Signs Temp 96.7 F L 01/21/25 06:22 Pulse 79 01/21/25 06:22 Resp 16 01/21/25 06:22 BP 147/100 H 01/21/25 06:22 Pulse Ox 97 01/21/25 06:22 O2 Del Method Room Air 01/21/25 06:22 Allergies Allergy/AdvReac Type Severity Reaction Status Date / Time metformin AdvReac Severe Diarrhea Verified 01/21/25 06:20 Home Medications ?Medication ?Instructions ?Recorded ?Confirmed ?Type fluticasone propionate 50 2 spray intranasal DAILY PRN 01/17/21 01/21/25 History mcg/actuation nasal allergy symptoms spray,suspension (Flonase Allergy Relief) blood-glucose meter #1 ea 11/13/24 Rx semaglutide 0.25 mg or 0.5 mg (2 0.5 mg (0.736 mL) subcut WEEKLY 11/18/24 01/21/25 Rx mg/3 mL) subcutaneous pen injector Hemoglobin A1C (Ozempic) 7.0 #3 mL semaglutide 1 mg/dose (4 mg/3 mL) 1 mg (0.75 mL) subcut WEEKLY 01/01/25 01/21/25 Rx subcutaneous pen injector (Ozempic) Hemoglobin A1C 7.0 #12 mL Laboratory Tests 01/21/25 06:28 POC Capillary Glucose 126 H mg/dl (65-105) Patient hx anesthesia problems: none Family hx anesthesia problems: none Results Review: All pre-operative results and documents have been reviewed as part of the pre- operative evaluation. [facility] Past Medical History Medical History Diabetes mellitus type 2 in nonobese Erectile dysfunction Family history of malignant neoplasm of colon in first degree relative diagnosed when younger than 60 years of age Tonsillectomy planned Surgical History Surgical History History of appendectomy History of repair of pectoralis muscle tear History of tonsillectomy Family History Family History Mother Patient's mother is in good health Father Patient's father is in good health Other Family history of malignant neoplasm of colon in first degree relative diagnosed when younger than 60 years of age Social History Social History Smoking status: Never smoker Second hand tobacco smoke exposure: Yes Alcohol intake: current Drinks per week: 20 Alcohol use details: socially Substance use: current Substance use type: marijuana Other substance usage details: smokes marijuana daily Lack of Transportation: No Lack of Food: Sometimes True Current Housing: I Have Housing Concerned About Future Housing: No Difficulty Paying Gas/Electric Bills: YES Difficulty Paying for Meds: YES Currently Unemployed: No Education: High School Diploma/GED Difficulty w/ Childcare or Family Care: No Living arrangements: with family Spiritual care concerns: No Anes - Eval Final PreProcedure Day of Procedure 01/21/25 07:16 Patient weight: morbidly obese Heart: regular rate and rhythm Lungs: clear to auscultation Airway: Mallampati scale class II Neurological: alert and oriented Last oral intake: >/= 8 hours ASA classification: III Emergent: no Anesthetic plan: proceed Anesthesia type and monitoring: general GIVS and standard monitoring Results Review: All pre-operative results and documents have been reviewed as part of the pre- operative evaluation. Informed Consent: The patient's anesthetic plan and its attendant risks and benefits were discussed with the patient/family/POA. Questions were solicited and answers provided to the satisfaction of the patient/family/POA.
--- NOTE | 2025-01-21 07:25 | PM.HPGS ---
History of Present Illness History of Present Illness Consent: Risks, benefits, and alternatives have been discussed and questions answered. Patient agrees to proceed with procedure. Chief complaint: screening colon Narrative: Reagan Holden is a 49 year old male with colon polyp in 2019 Review of Systems Review of Systems: All systems reviewed & are unremarkable except as noted in HPI and below PMFSH Past Medical History Medical History (Updated 01/21/25 @ 07:25 by Kevin Cho MD) Colon polyp Erectile dysfunction Diabetes mellitus type 2 in nonobese Tonsillectomy planned Family history of malignant neoplasm of colon in first degree relative diagnosed when younger than 60 years of age Surgical History Surgical History History of tonsillectomy History of appendectomy History of repair of pectoralis muscle tear Family History Family History Mother Patient's mother is in good health Father Patient's father is in good health Other Family history of malignant neoplasm of colon in first degree relative diagnosed when younger than 60 years of age Social History Social History Smoking status: Never smoker Second hand tobacco smoke exposure: Yes Alcohol intake: current Drinks per week: 20 Alcohol use details: socially Substance use: current Substance use type: marijuana Other substance usage details: smokes marijuana daily Lack of Transportation: No Lack of Food: Sometimes True Current Housing: I Have Housing Concerned About Future Housing: No Difficulty Paying Gas/Electric Bills: YES Difficulty Paying for Meds: YES Currently Unemployed: No Education: High School Diploma/GED Difficulty w/ Childcare or Family Care: No Living arrangements: with family Spiritual care concerns: No Meds Home Medications and Allergies Home Medications ?Medication ?Instructions ?Recorded ?Confirmed ?Type fluticasone propionate 50 2 spray intranasal DAILY PRN 01/17/21 01/21/25 History mcg/actuation nasal allergy symptoms spray,suspension (Flonase Allergy Relief) blood-glucose meter #1 ea 11/13/24 Rx semaglutide 0.25 mg or 0.5 mg (2 0.5 mg (0.736 mL) subcut WEEKLY 01/29/25 04/03/25 Rx mg/3 mL) subcutaneous pen injector Hemoglobin A1C (Ozempic) 7.0 #3 mL semaglutide 1 mg/dose (4 mg/3 mL) 1 mg (0.75 mL) subcut WEEKLY 01/01/25 01/21/25 Rx subcutaneous pen injector (Ozempic) Hemoglobin A1C 7.0 #12 mL Allergies Allergy/AdvReac Type Severity Reaction Status Date / Time metformin AdvReac Severe Diarrhea Verified 01/21/25 06:20 Vital Signs Vital Signs - 24 hr 01/21/25 06:22 Temperature 96.7 F L Pulse Rate 79 Respiratory Rate 16 Blood Pressure 147/100 H Pulse Oximetry 97 Oxygen Delivery Room Air Exam Const: General: comfortable and no acute distress HENMT: Face/Nose/Sinus: Normal nares present Eyes: General: appearance normal, both eyes and all related structures Neck: Neck: no JVD Resp: Auscultation: clear to auscultation bilaterally Cardio: Rate: regular rate Rhythm: regular rhythm GI: Inspection: non-distended GI Palp: Yes Soft to palpation Skin: General skin exam: normal color Neuro: General: gait normal Speech: normal speech Extrem: General: normal to inspection Psych: Mental Status: mental status grossly normal Assessment and Plan Assessment and plan (1) Colon polyp: Code(s): K63.5 - Polyp of colon Status: Acute Assessment and Plan: colonoscopy
[2025-01-21 07:42] VITALS: BP 123/84; PULSE 63; RESP 14; O2SAT 97
[2025-01-21 07:52] VITALS: BP 128/84; PULSE 74; RESP 17; O2SAT 100
[2025-01-21 08:02] VITALS: BP 135/96; PULSE 56; RESP 16; O2SAT 98
== END 2025-01-21 08:15 | disposition home or self-care (01) ==
PROVIDERS: PCP Nurse Practitioner Family; Referring Provider Nurse Practitioner Family; Visit Provider Internal Medicine Gastroenterology
PROC: 0DJD8ZZ Inspection of Lower Intestinal Tract, Via Natural or Artificial Opening Endoscopic (ICD-10-PCS; CPT 45378; principal; 2025-01-21 07:30)
DX: Z12.11 Encounter for screening for malignant neoplasm of colon (principal); D12.3 Benign neoplasm of transverse colon; D12.5 Benign neoplasm of sigmoid colon; K64.8 Other hemorrhoids; Z80.0 Family history of malignant neoplasm of digestive organs; E11.9 Type 2 diabetes mellitus without complications
CPT/HCPCS: 45380; 45385; 82948; 88305; J2003; J2704; J7120

== ENCOUNTER 2025-02-02 15:55 | Outpatient (CLI) | payer OTHER, SELFPAY ==
[2025-02-02 16:26] LABS: Hemoglobin A1C 6.2 % (<5.7)
[2025-02-02 16:30] LABS: Alanine Aminotransferase 44 U/L (6-50); Albumin Level 4.4 g/dL (3.5-5.1); Alkaline Phosphatase 54 U/L (38-126); Anion Gap 9 mmol/L (4-12); Aspartate Amino Transferase 28 U/L (17-59); Bilirubin,Total 1.3 mg/dL (0.2-1.3); Blood Urea Nitrogen 18 mg/dL (9-20); Calcium 9.3 mg/dL (8.4-10.2); Carbon Dioxide 24 mmol/L (22-30); Chloride 102 mmol/L (98-107); Estimated Glomerular Filt Rate > 60; Glucose 89 mg/dL (65-110); Potassium 4.1 mmol/L (3.4-5.0); Sodium 135 mmol/L (137-145)
--- OUTSIDE RECORDS SUMMARY | 2025-02-02 16:46 | XMS_ITS | Continuity of Care Document ---
Author Organization [facility] Address [address] [place] [address] Phone Care Team Providers Care Beach Attendant Name Role Phone Rayo Edwards MD Unavailable [...] Date Provider Providers Copied on Encounter [facility], [address] [facility], [place], [place], [address], [place] tel:[phone] [facility] right knee (chief complaint) Encounter for other orthopedic aftercare Jerry Cade. [address] [facility], [address], [place], [place], [address] , [place]. tel:[phone] [facility], [address] [address], [place], [place], [address], [place] tel:[phone] [facility] right knee (chief complaint) Encounter for other orthopedic aftercare Jerry Cade. [address] [facility], [address], [place], [place], [address] , [place]. tel:[phone] [facility], [address] [facility] [address], [place], [place], [address], [place] tel:[phone] [facility] right knee (chief complaint) Encounter for other orthopedic aftercare Jerry Cade. [address] [facility], [address], [place], [place], [address] , [place]. tel:[phone] [facility], [address] [address], [place], [place], [address], [place] tel:[phone] [facility] right knee (chief complaint) Encounter for other orthopedic aftercare Jerry Cade. [address] [facility], [address], [place], [place], [address] , [place]. tel:[phone] Referring Provider: Rayo Chavira, [address] [facility] [address], [place], [address] . tel:[phone] [facility], [address], [id number], [place] tel:[phone] [facility] Oth tear of medial meniscus, current injury, r knee, sequela Jerry Cade. [address] [facility], [address], [place], [place], [address] , [place]. tel:[phone] Office/outpat ient visit,est, mod [facility], [address] [facility] [address], [place], [place], [address], [place] tel:[phone] [facility] right knee (chief complaint) Oth tear of medial meniscus, current injury, r knee, sequela Jerry Cade. [address] [facility], [address], [place], [place], [address] , . tel:[phone] Referring Provider: Rayo Chavira, [address] [facility] [address], [place], [place], [address] [place] [address] . tel:[phone] [facility], [address] [place] [address], [place], [id number], tel:[phone] [facility] Pain [facility] knee [facility]. [address] [place] [address], [address], [place], [place], [address] [place] [address] , . tel:[phone] Referring Provider: Rayo Chavira, [address] [place] [address] [address], [place], [place], [address] [place] [address] . tel:[phone] Office consultation, [facility], [address] [place] [address], [place], [address] [place] [address], tel:[phone] [facility] right knee (chief complaint) Pain in right knee Jerry Cade. [address] [place] [address], [address], [place], [place], [address] [place] [address] , [place]. tel:[phone] Referring Provider: Rayo Chavira, [address] [place] [address] [address], [place], [address] . tel:[phone] Family History Family Member Type Diagnosis Age At Onset Mother Problem (finding) Cancer, unknown Father Problem (finding) Diabetes Payers Payer name Insurance type Covered constitution party ID Brandno newton(s) [facility] [id number] Social History Type Description Quantity Date Captured [...]
--- OUTSIDE RECORDS SUMMARY | 2025-02-02 16:47 | XMS_ITS | Clinical Summary ---
Author Organization [facility] Address [address] [place] [address] Care Team Providers Care Flight Software Test Engineer Name Role Phone Emelia Barker NP Primary Care Provider [phone] Allergies Active Allergy Reactions Criticality Noted Date [...] Encounters Date Type Department Care Team Description 01/21/2025 Telephone [facility] Orthopedic & Sports Medicine - [place] [facility] [place] [address] Nicolasa Yates MD Information 01/19/2025 8:00 AM CDT Office Visit [facility] Orthopedic & Sports Medicine - [place] [address] [place] [address] Nicolasa Yates MD Follow Up (Left shoulder scope 04/10/24) 01/19/2025 Scan [facility] HEALTH INFO SRVCS Scanned, Doc Med Group 01/19/2025 Travel 01/07/2025 MyChart Message Enc [facility] Orthopedic & Sports Medicine - [place] [address] [place] [address] Mariaa, [facility] Provider apt reschedule 01/06/2025 Telephone [facility] Orthopedic & Sports Medicine - [place] [address] [place] [address] Nicolasa Yates MD Reschedule; Work Comp Injury Management; Returned Call 12/30/2024 MyChart Message Enc [facility] Orthopedic & Sports Medicine - [place] [address] [place] [address] Mariaa, [facility] Provider appointment 12/29/2024 Telephone [facility] Orthopedic & Sports Medicine - [place] [address] [place] [address] Nicolasa Yates MD Information 12/25/2024 Scan HEALTH INFO SRVCS Scanned, Doc Med [facility] 12/21/2024 Telephone [facility] Orthopedic & Sports Medicine - [place] [address] [place] [address] Nicolasa Yates MD Information; Orders 12/15/2024 MyChart Message Enc [facility] Orthopedic & Sports Medicine - [place] [address] [place] [address] Mariaa, [facility] Provider MRI results 12/15/2024 MyChart Message Enc [facility] Orthopedic & Sports Medicine - [place] [address] [place] [address] Mariaa [facility] Provider MRI results 12/09/2024 1:10 PM CITRIX ADMINISTRATOR - 12/09/2024 11:59 PM CITRIX ADMINISTRATOR Hospital Encounter [facility] [address] [place] [address] Nicolasa Yates MD Discharge Disposition: Home or Self Care (Routine Discharge) 12/09/2024 Telephone [facility] Orthopedic & Sports [facility] [address] [place] [address] Nicolasa Yates MD Appointment Request (MRI results) 12/09/2024 Travel 12/01/2024 11:20 AM CITRIX ADMINISTRATOR Office Visit [facility] [address] [place] [address] Nicolasa Yates MD Follow Up (Left shoulder 04/10/24) 12/01/2024 Scan jaeyos INFO SRVCS Scanned, Doc Med Group 12/01/2024 Travel 11/30/2024 9:00 AM CITRIX ADMINISTRATOR Office Visit [facility] [address] [place] [address] Nicolasa Yates MD Walters, Cierra J, PT Re-evaluation 11/30/2024 Travel 11/27/2024 9:00 AM CITRIX ADMINISTRATOR Office Visit [facility] [address] [place] [address] Nicolasa Yates MD Walters, Cierra J, PT Post Surgical 11/27/2024 Travel 11/25/2024 9:30 AM CITRIX ADMINISTRATOR Office Visit [facility] [address] [place] [address] Nicolasa Yates MD Lutz, Robert J, TRANSPORTATION LEAD Post Surgical 11/25/2024 Travel 11/23/2024 8:45 AM CITRIX ADMINISTRATOR Office Visit [facility] [address] [place] [address] Nicolasa Yates MD Walters, Cierra J, PT Post Surgical 11/23/2024 Travel 11/20/2024 9:30 AM CITRIX ADMINISTRATOR Office Visit [facility] [address] [place] [address] Nicolasa Yates MD Lutz, Robert J, TRANSPORTATION LEAD Post Surgical 11/20/2024 Travel 11/18/2024 10:15 AM CITRIX ADMINISTRATOR Office Visit [facility] [address] [place] [address] Nicolasa Yates MD Lueken, Anne H, PT Post Surgical 11/18/2024 Travel 11/16/2024 9:15 AM CITRIX ADMINISTRATOR Office Visit [facility] [address] [place] [address] Nicolasa Yates MD Collins, Sabrina R, TRANSPORTATION LEAD Post Surgical 11/16/2024 Travel 11/13/2024 Telephone [facility] [address] [place] [address] Levy Morales, TRANSPORTATION LEAD Called To Cancel Office Appt. 11/11/2024 8:45 AM CITRIX ADMINISTRATOR Office Visit [facility] [address] [place] [address] Nicolasa Yates MD Lutz, Robert J, TRANSPORTATION LEAD Post Surgical 11/11/2024 Travel 11/09/2024 8:45 AM CITRIX ADMINISTRATOR Office Visit [facility] [address] [place] [address] Nicolasa Yates MD Walters, Cierra J, PT Post Surgical 11/09/2024 Travel 11/06/2024 8:45 AM CITRIX ADMINISTRATOR Office Visit [facility] [address] [place] [address] Nicolasa Yates MD Lutz, Robert J, PTA Post Surgical 11/06/2024 Travel from Last 3 Months Family History [...] Sex Assigned at Male 12/09/2024 1:07 PM CITRIX ADMINISTRATOR Legal Sex Male 11:12 PM CDT Gender [...] - 19+ 3-dose series) 1993 COVID-19 Vaccine ( - 2023-2 5 season) 2024 12/23/2020 Zoster Vaccines (1 of 2) 2024 DTaP, Tdap and Td Vaccines ( 2 - Td or Tdap) 01/30/2030 01/31/2020 PHQ-2 (Physician [place]) Completed 12/01/2024 Meningococcal B Vaccine Aged Out No l onger eligible based on patient's age to complete this topic Meningococcal Vaccine Aged Out No shadi conchita eligible based on patient's age to complete this topic Pneumococcal Vaccine: Pediat rics (0 to 5 Years) and At-Risk Patients (6 to 49 Years) Aged Out No longer eligi ble based on patient's age to complete this topic RSV Immunizations Under 20 Months Aged Out No longer eligible based on patient's age to complete this topic Medical Devices Implanted Type Area Midwife Device Identifier Shelf Expiration Date Model / Serial / Lot Implant Ar[employer] [place] Bio-Corkscrew 4.5mm - [id number] Implanted:Qty : 1 on 04/10/2024 by Nicolasa Yates MD at [facility] [place] Left: Shoulder [employer] [id number] 04/19/2027 [id number] F-45 / / [id number] Implant [place] Ar[employer]rex Bio Swivelock 4.75mm - [id number] Implanted:Qty : 2 on 04/10/2024 by Nicolasa Yates MD at [facility] [place] Left: Shoulder [employer] [id number] 11/20/2027 [id number]-2324BC C / / [id number] [place] Suture [employer] Bio Swivelock 5.5mm - [id number] Implanted:Qty : 1 on 04/10/2024 by Nicolasa Yates MD at [facility] [place] Left: Shoulder [employer] [id number] 12/19/2027 [id number]-[id number] C / / [id number] Procedures Procedure Name Priority Date/Time Associated Diagnosis Comments MRI SHOULDER LT WO CON Routine 12/09/2024 1:45 PM CITRIX ADMINISTRATOR S/P arthroscopy of left shoulder OXR LT SHOULDER 3V Routine 12/01/2024 11 :47 AM CITRIX ADMINISTRATOR S/P arthroscopy of left shoulder from Last 3 Months Results * MRI SHOULDER LT WO CON (12/09/2024 1:45 PM CITRIX ADMINISTRATOR) Anatomical Region Laterality Modality Shoulder Magnetic Resonan ce 12/15/2024 3:19 PM CITRIX ADMINISTRATOR Impressions 12/15/2024 3:36 PM CITRIX ADMINISTRATOR IMPRESSION: 1) Rotator cuff repair appears intact. No evidence of recurrent rotator cuff tear. 2. Intra-articular proximal long head of biceps tendon is not visualized in its expected location suggesting that it has been torn and retracted. Ordered By: NICOLASA YATES Interpreted By: Janes Mcmahon MD, 12/15/2024 3:19 PM Narrative 12/15/2024 3:36 PM CITRIX ADMINISTRATOR [address] [address] Examination: MRI SHOULDER LT WO CON Exam [...] Procedure Note Janes Mcmahon MD - 12/15/[address] [address] Examination: MRI SHOULDER LT WO CON Exam time: 12/09/2024 1:22 PM Clinical history: History of left rotator cuff repair, long head of bicepstendon tenotomy and resection of the distal clavicle. Recurrent shoulderpain Comparison: 12/26/2023 Technique: Coronal fat-suppressed T2 and fat-suppressed proton densityimages left shoulder obtained along with sagittal T1 and [id number] images. Axial fat-suppressed proton density images. Nointravenous [...] By: Janes Mcmahon MD, 12/15/2024 3:19 PM Nicolasa Yates MD MRI Final Result * OXR LT SHOULDER 3V (12/01/2024 11:47 AM CITRIX ADMINISTRATOR) Anatomical Region Laterality Modality Radiographic Taylor ging Narrative 12/01/2024 11:52 AM CITRIX ADMINISTRATOR PROCEDURE: OXR LT SHOULDER 3V VIEWS: 3 DATE: 12/01/24 COMPARISONS: None CLINICAL INDICATION: FINDINGS: Type 1+ acromion, evidence of prior distal clavicle excision. No acute findings. IMPRESSION: Consistent with patient's prior arthroscopic subacromial decompression and distal clavicle excision. Nicolasa Yates MD GENERAL IMAGING Final Result from Last 3 Months Insurance [employer] Care Teams Flight Software Test Engineer Relationship Specialty Start Date End Date Emelia Barker NP [address] [place] [id number] PCP - General NURSE PRACTITIONER 12/19/23
--- OUTSIDE RECORDS SUMMARY | 2025-02-02 16:47 | XMS_ITS | Encounter Summary ---
Author Organization [facility] Address [address] [place] [address] Care Team Providers Care Gold Stamper Name Role Phone Emelia Barker NP Primary Care Provider [phone] Encounter Details Date Type Department Care Team (Late st Contact Info) Description 01/07/2025 PublicBeta Message Counts include 234 beds at the [facility] Orthopedic & Sports Medicine - [place] [address] [facility] Provider apt reschedule Social History Tobacco Use Types Packs/Day Years Used Date Smoking Tobacco: Never Passive Smoke Exposure: Never Smokeless Tobacco: Never Alcohol Use Standard Drinks/Week Comments Yes 20 (1 standard drink = 0.6 oz pu re alcohol) PHQ-2 Answer Date Recorded Patient Health Questionnaire-2 Score 2 12/01/2024 Sex and Gender Information Value Date Recorded Sex Assigned at Male 12/09/2024 1:07 PM SLATE MIXER Legal Sex Male 11:12 PM CDT Gender Identity Not on file Sexual Orientation Not on file documented as of this encounter Plan of Treatment Not on file documented as of this encounter Visit Diagnoses Not on filedocumented in this encounter Care Teams Gold Stamper Relationship Specialty Start Date End Date Emelia Barker NP [address] [place] [phone] PCP - General NURSE PRACTITIONER 12/19/23 documented as of this encounter
--- OUTSIDE RECORDS SUMMARY | 2025-02-02 16:47 | XMS_ITS | Continuity of Care Document ---
Author Organization [facility] Address [address] [place] [phone] Phone Care Team Providers Care Global Product Manager Name Role Phone Jose Smith Unavailable Unavailable [...] Exercise Therapeutic Activities Manual Therapy Neuromuscular Re-Ed Therapeutic Exercise Therapeutic Activities Neuromuscular Re-Ed Manual Therapy WELT INSOLE CHANNELER Acute Therapeutic Exercise Therapeutic Activities Neuromuscular Re-Ed Manual Therapy Hot or Cold Pack Therapeutic Exercise Therapeutic Activities Neuromuscular Re-Ed Manual Therapy Electrical Stimulation Therapeutic Exercise Neuromuscular Re-Ed Therapeutic Activities Manual Therapy Electrical Stimulation Therapeutic Exercise Therapeutic Activities Neuromuscular Re-Ed Manual Therapy Hot or Cold Pack Electrical Stimulation PT Evaluation Moderate Complexity Therapeutic Exercise Therapeutic Activities Neuromuscular Re-Ed Electrical Stimulation Advance Directives Directive Yes / No Effective Date File Name No Information Encounters Encounter Description Practice Location Reason(s) For Visit Diagnoses Date Provider Providers Copied on Encounter [address], [id number], tel:[phone] [place] No Information 1 9 Muehl Jose. [address] [place] [address], [address], [facility], . tel:[phone] Referring Provider: Rayo Edwards, [address] [address], [place], [address]. tel:[phone], [id number], tel:[phone] [place] No Information 0201 9 Muehl Jose. [address] [place] [address], [address], [facility], . tel:[phone] Referring Provider: Rayo Edwards, [address] [address], [place], [address]. tel:[phone] [address], [place], [place], [id number], tel:[phone] [place] No Information 9 Threlkeld Alpa. . Referring Provider: Rayo Edwards, [address] [address], [place], [address]. tel:[phone] [place] [address], [id number], tel:[phone] [place] No Information 9 Muehl Jose. [address] [place] [address], [address], [place], [place], [facility], [place]. tel:[phone] Referring Provider: Rayo Edwards [address] [place] [address] [address], [place], [address]. tel:[phone], [id number], tel:[phone] [place] No Information 9 Muehl Jose. [address] [place] [address], [address], [place], [place], [facility], [place]. tel:[phone] Referring Provider: Rayo Edwards [address] [place] [address] [address], [place], [address]. tel:[phone], [id number], tel:[phone] [place] No Information 9 Muehl Jose. [address] [place] [address], [address], [place], [address], [place]. tel:[phone] Referring Provider: Rayo Edwards [address] [place] [address] [address], [place], [address]. tel:[phone], [id number], tel:[phone] [place] No Information 9 Muehl Jose. [address] [place] [address], [address], [place], [address], [place]. tel:[phone] Referring Provider: Rayo Edwards [address] [place] [address] [address], [place], [address]. tel:[phone], [id number], tel:[phone] [place] No Information 9 Muehl Jose. [address] [place] [address], [address], [place], [facility], . tel:[phone] Referring Provider: Rayo Edwards [facility] [address], [place], [address]. tel:[phone], [id number], tel:[phone] [place] No Information 9 Muehl Jose. [address] [place] [address], [address], [place], [facility], . tel:[phone] Referring Provider: Rayo Edwards [address] [place] [address] Suite [facility], [place], [place], [facility]. tel:[phone], [id number], tel:[phone] [place] No Information 9 Ngal Jose. [address] [place] [address], [address] [place] [address], [facility], . tel:[phone] Referring Provider: Rayo Edwards [address] [place] [address] Suite [facility], [place], [address]. tel:[phone], [id number], tel:[phone] [place] No Information 9 Woodyehl Jose. [address] [place] [address], [address], [facility], . tel:[phone] Referring Provider: Rayo Edwards [facility] [address] [place] [address], [address]. tel:[phone], [id number], tel:[phone] [place] Pain in right kneeStiffness of right knee, not elsewhere classifiedEffu cesia, right kneeMuscle weakness (generalized)U nspecified abnormalities of gait and mobility 9 Muehl Jose. [address] [facility], [address], [place], [address], [place]. tel:[phone] Referring Provider: Rayo Edwards, [address] [facility] [address], [place], [address]. tel:[phone] Family History Family Member Type Diagnosis Age At Onset No Information Payers Payer name Insurance type Covered democrat ID Authoriza katiuskatroy(s) Med[employer] EPO WC SP [id number] Social History Type Description Quantity Date Captured [...]
--- OUTSIDE RECORDS SUMMARY | 2025-02-02 16:47 | XMS_ITS | Encounter Summary ---
Author Organization [facility] Address [address] [place] [address] Care Team Providers Care Ribbon Sweatband Operator Name Role Phone Emelia Barker CRITICAL CARE TECHNICIAN Primary Care Provider [phone] Encounter Details Date Type Department Care Team (Late st Contact Info) Description 12/30/2024 ZeroTurnaround Message [facility] Orthopedic & Sports Medicine - [place] [address] [facility] Provider appointment Social History Tobacco Use Types Packs/Day Years Used Date Smoking Tobacco: Never Passive Smoke Exposure: Never Smokeless Tobacco: Never Alcohol Use Standard Drinks/Week Comments Yes 20 (1 standard drink = 0.6 oz pu re alcohol) PHQ-2 Answer Date Recorded Patient Health Questionnaire-2 Score 2 12/01/2024 Sex and Gender Information Value Date Recorded Sex Assigned at Male 12/09/2024 1:07 PM SUSTAINABLE DESIGN CONSULTANT Legal Sex Male 11:12 PM CDT Gender Identity Not on file Sexual Orientation Not on file documented as of this encounter Plan of Treatment Not on file documented as of this encounter Visit Diagnoses Not on filedocumented in this encounter Care Teams Ribbon Sweatband Operator Relationship Specialty Start Date End Date Emelia Barker NP [address] [place] [address] PCP - General NURSE PRACTITIONER 12/19/23 documented as of this encounter
--- OUTSIDE RECORDS SUMMARY | 2025-02-02 16:47 | XMS_ITS | Encounter Summary ---
Author Organization [facility] Address [address] [place] [address] Care Team Providers Care Sand Blaster Name Role Phone Emelia Barker NP Primary Care Provider [phone] Encounter Details Date Type Department Care Team (Late st Contact Info) Description 12/15/2024 [employer] Message [facility] Orthopedic & Sports Medicine - [place] [address] [facility] Provider MRI results Social History Tobacco Use Types Packs/Day Years Used Date Smoking Tobacco: Never Passive Smoke Exposure: Never Smokeless Tobacco: Never Alcohol Use Standard Drinks/Week Comments Yes 20 (1 standard drink = 0.6 oz pu re alcohol) PHQ-2 Answer Date Recorded Patient Health Questionnaire-2 Score 2 12/01/2024 Sex and Gender Information Value Date Recorded Sex Assigned at Male 12/09/2024 1:07 PM TONG CARRIER Legal Sex Male 11:12 PM CDT Gender Identity Not on file Sexual Orientation Not on file documented as of this encounter Plan of Treatment Not on file documented as of this encounter Visit Diagnoses Not on filedocumented in this encounter Care Teams Sand Blaster Relationship Specialty Start Date End Date Emelia Barker NP [address] [place] [address] PCP - General NURSE PRACTITIONER 12/19/23 documented as of this encounter
--- OUTSIDE RECORDS SUMMARY | 2025-02-02 16:47 | XMS_ITS | Encounter Summary ---
Author Organization [facility] Address [address] [place] [address] Care Team Providers Care Inhalation Therapy Aides Teacher Name Role Phone Emelia Barker NP Primary Care Provider [phone] Encounter Details Date Type Department Care Team (Late st Contact Info) Description 12/15/2024 iSpecimen Message [facility] Orthopedic & Sports Medicine - [place] [address] [facility] Provider MRI results Social History [...] Sex Assigned at Male 12/09/2024 1:07 PM LAWN MOWER REPAIRER Legal Sex Male 11:12 PM CDT Gender Identity Not on file Sexual Orientation Not on file documented as of this encounter Plan of Treatment Not on file documented as of this encounter Visit Diagnoses Not on filedocumented in this encounter Care Teams Inhalation Therapy Aides Teacher Relationship Specialty Start Date End Date Emelia Barker NP [address] [place] [address] PCP - General NURSE PRACTITIONER 12/19/23 documented as of this encounter
== END 2025-02-02 15:56 | disposition home or self-care (01) ==
LOC: ANHLAB 15:58
PROVIDERS: PCP Nurse Practitioner Family; Visit Provider Nurse Practitioner Family
DX: E78.00 Pure hypercholesterolemia, unspecified (principal); E11.9 Type 2 diabetes mellitus without complications; G47.33 Obstructive sleep apnea (adult) (pediatric); Z68.41 Body mass index [BMI] 40.0-44.9, adult; E66.01 Morbid (severe) obesity due to excess calories
CPT/HCPCS: 36415; 80053; 83036

== ENCOUNTER 2025-07-23 07:15 | Outpatient (CLI) | payer OTHER, SELFPAY ==
[2025-07-23 07:57] LABS: Hematocrit 45.8 % (42.0-52.0); Hemoglobin 15.3 g/dL (14.0-18.0); Immature Granulocyte Percent A 0.2 % (0-0.5); Lymphocytes Absolute Auto 2.75 K/mm3 (0.9-3.2); Mean Corpuscular HGB Conc 33.4 g/dl (32-36); Mean Corpuscular Hemoglobin 29.9 pg (26-34); Mean Corpuscular Volume 89.5 fl (80-100); Nucleated Red Blood Cells Absolute Auto 0.000 K/mm3 (0.0-0.012); Nucleated Red Blood Cells Perc 0.0 % (0.0-0.2); Platelet Count Result 236 k/mm3 (150-375); Red Blood Count 5.12 M/mm3 (4.6-6.20); White Blood Count 8.3 K/mm3 (4.5-10.0)
[2025-07-23 09:58] LABS: MALB Creatinine Ratio 7.7 mg/g (0-30)
[2025-07-23 11:45] LABS: Hemoglobin A1C 6.0 % (<5.7)
== END 2025-07-23 07:16 | disposition home or self-care (01) ==
LOC: ANHLAB 07:16
PROVIDERS: PCP Nurse Practitioner Family; Visit Provider Nurse Practitioner Family
DX: E78.00 Pure hypercholesterolemia, unspecified (principal); E11.9 Type 2 diabetes mellitus without complications; Z68.41 Body mass index [BMI] 40.0-44.9, adult; M25.50 Pain in unspecified joint; M25.519 Pain in unspecified shoulder; G89.29 Other chronic pain; G47.33 Obstructive sleep apnea (adult) (pediatric)
CPT/HCPCS: 36415; 80053; 80061; 82043; 83036; 84153; 85025; G0103

== ENCOUNTER 2025-07-26 06:45 | Outpatient (CLI) | payer SELFPAY ==
[2025-07-26 07:47] LABS: Alanine Aminotransferase 30 U/L (6-50); Albumin Level 4.1 g/dL (3.5-5.1); Alkaline Phosphatase 49 U/L (38-126); Anion Gap 7 mmol/L (4-12); Aspartate Amino Transferase 28 U/L (17-59); Bilirubin,Total 1.6 mg/dL (0.2-1.3); Blood Urea Nitrogen 20 mg/dL (9-20); Calcium 8.8 mg/dL (8.4-10.2); Carbon Dioxide 23 mmol/L (22-30); Chloride 105 mmol/L (98-107); Cholesterol 169 mg/dL (0-200); Estimated Glomerular Filt Rate > 60; Glucose 114 mg/dL (65-110); HDL Direct 87 mg/dL; Potassium 3.8 mmol/L (3.4-5.0); Sodium 135 mmol/L (137-145); Total Protein 6.9 g/dL (6.3-8.2); Triglycerides 163 mg/dL (<150)
[2025-07-26 08:23] LABS: Prostate Specific Antigen 1.1 ng/mL (< OR = 4.0)
== END 2025-07-26 06:46 | disposition home or self-care (01) ==
PROVIDERS: PCP Nurse Practitioner Family; Visit Provider Nurse Practitioner Family
DX: E78.00 Pure hypercholesterolemia, unspecified (principal); Z12.5 Encounter for screening for malignant neoplasm of prostate; E11.9 Type 2 diabetes mellitus without complications; M19.90 Unspecified osteoarthritis, unspecified site; M25.519 Pain in unspecified shoulder; G47.33 Obstructive sleep apnea (adult) (pediatric); G89.29 Other chronic pain
CPT/HCPCS: 36415; 80053; 80061; 84153; G0103